=== PATIENT | male | born 1975 | race Caucasian/White ===

== ENCOUNTER 2020-10-03 14:19 | Emergency (ER) | payer OTHER ==
--- NOTE | 2020-10-03 14:44 | ED ---
General Adult HPI - General Stated complaint: Covid Test Time Seen by Provider: 10/03/20 14:29 Source: patient, RN notes reviewed Mode of arrival: ambulatory Limitations: no limitations - History of Present Illness Initial comments: This a 45-year-old male presents emergency Department chief complaint of needing COVID-19 tests. Patient states he is traveling back to [place] and is required to have a tetanus. He is vaccinated, asymptomatic. Patient denies fever chills cough congestion shortness of breath nausea vomiting diarrhea constipation patient offers no other complaints. Review of Systems ROS Statement: Those systems with pertinent positive or pertinent negative responses have been documented in the HPI. ROS Other: All systems not noted in ROS Statement are negative. General Exam General appearance: alert, in no apparent distress Head exam: Present: atraumatic, normocephalic, normal inspection Eye exam: Present: normal appearance, PERRL, EOMI. Absent: scleral icterus, conjunctival injection, periorbital swelling ENT exam: Present: normal exam, mucous membranes moist Respiratory exam: Present: normal lung sounds bilaterally. Absent: respiratory distress, wheezes, rales, rhonchi, stridor Cardiovascular Exam: Present: regular rate, normal rhythm, normal heart sounds. Absent: systolic murmur, diastolic murmur, rubs, gallop, clicks Medical Decision Making - Medical Decision Making Patient is asymptomatic COVID-19 test is negative. Disposition Clinical Impression: Encounter for laboratory testing for COVID-19 virus Disposition: HOME SELF-CARE Condition: Stable Additional Instructions: Please return to the Emergency Department if symptoms worsen or any other concerns. Is patient prescribed a controlled substance at d/c from ED?: No Referrals: None,Stated [Primary Care Provider] - 1-2 days Time of Disposition: 14:44
[2020-10-03 14:45] VITALS: BP 149/101; PULSE 70; RESP 18; TEMP 98.5
== END 2020-10-03 15:16 | disposition home or self-care (01) ==
LOC: EC 14:19
DX: Z11.52 Encounter for screening for COVID-19 (principal); Z20.822 Contact with and (suspected) exposure to COVID-19
CPT/HCPCS: 87635; 99282